=== PATIENT | female | born 1980 | race Caucasian/White ===

== ENCOUNTER 2024-03-23 16:39 | Inpatient (IN) ==
--- NOTE | 2024-03-23 16:45 | ED Triage Note ---
Date of Service March 23, 2024 Provider in Triage Author: Latia Foster History of Present Illness This patient was briefly evaluated while in triage. An abbreviated physical exam was performed. This patient is a 43-year-old Female who presents to the ED for evaluation of "my heart was pounding really fast" started acutely about 30 minutes ago pulse rate on smart watch was over 200 feeling near syncopal denies history of this Physical Exam GENERAL: ambulatory into triage in moderate distress. CARDIOVASCULAR: tachycardic, 200s. RESPIRATORY: CTA Initial orders for labs and / or imaging were placed and patient was placed in the waiting area until a bed is available. Please see further documentation for the full ED course.
[2024-03-23] MEDS: AMIODARONE 150MG / 100ML D5W IV ONE (16:56)
[2024-03-23] MEDS: METOPROLOL TARTRATE 1 MG/ML VIAL IV ONE ×2 (17:00→20:19)
[2024-03-23 17:14] LABS: iSTAT Creatinine 0.9 mg/dl (0.6-1.3); iSTAT Hemoglobin 16.7 g/dl (12.0-16.0); iSTAT Ionized Calcium 1.02 mmol/l (1.12-1.32); iSTAT Potassium 3.1 mmol/L (3.3-5.0)
[2024-03-23] MEDS: SODIUM CHLORIDE 0.9% 500 ML IV ONE (17:16)
[2024-03-23 17:20] LABS: Basophils % (auto) 0.6 %; Eosinophils # (auto) 0.16 K/uL (0.00-0.50); Eosinophils % (auto) 0.9 %; Hematocrit (blood only) 49.8 % (37.0-47.0); Hemoglobin 16.9 g/dl (12.0-16.0); Immature Granulocytes % (auto) 0.6 %; Lymphocytes # (auto) 3.48 K/uL (1.20-3.40); Mean Corpuscular Hemoglobin 32.3 pg (25.0-34.0); Mean Corpuscular Hgb Conc 33.9 g/dL (32.0-36.0); Mean Corpuscular Volume 95.2 fL (80.0-100.0); Mean Platelet Volume 10.2 fL (9.4-12.4); Monocytes # (auto) 1.19 K/uL (0.11-0.59); Monocytes % (auto) 6.8 %; Neutrophils # (auto) 12.38 K/uL (1.40-6.50); Neutrophils % (auto) 71.1 %; Platelet Count 330 K/uL (130-400); RDW Coefficient of Variation 12.1 % (11.5-14.5); RDW Standard Deviation 42.3 fL (36.4-46.3); Red Blood Count 5.23 M/uL (4.20-5.40); White Blood Count 17.41 K/ul (4.8-10.8)
[2024-03-23 17:23] LABS: Pregnancy Test, Serum Negative (Negative)
[2024-03-23 17:25] LABS: Albumin Globulin Ratio 1.5 (0.9-2); Albumin Level 4.9 gm/dl (3.4-5.0); BUN Creatinine Ratio 10.3 (10-20); Bilirubin,Total 0.6 mg/dl (0.2-1.0); Calcium 9.8 mg/dl (8.6-10.3); Creatinine Clr Calc Pharmacy 86.2 ml/min; Globulin 3.2 gm/dl (2.5-4.0); Magnesium 1.7 mg/dl (1.7-2.4); Potassium 3.2 mmol/L (3.5-5.1); Total Protein 8.1 gm/dl (6.0-8.3)
[2024-03-23 17:31] LABS: Troponin I High Sensitivity 5.7 pg/ml (0-14)
[2024-03-23 17:40] LABS: Partial Thromboplastin Time 27 Seconds (21-31); Prothrombin Time 10.6 Seconds (9.0-12.0); Thyroid Stimulating Hormone 3.716 uIu/ml (0.300-4.500)
[2024-03-23] MEDS: POTASSIUM CHLORIDE CRTAB 20 MEQ TABCR PO STA (17:45)
[2024-03-23] MEDS: POTASSIUM CHLORIDE / WTR 10 MEQ/100 ML PLCT IV ONE (17:45)
[2024-03-23] MEDS: AMIODARONE 360MG / 200ML D5W IV ONE (17:46)
--- NOTE | 2024-03-23 17:59 | XRay Report ---
EXAM: Radiograph of the Chest 1 View INDICATION: Palpitations. Tachycardia. TECHNIQUE: Frontal view of the chest. COMPARISON: No relevant prior studies available. FINDINGS: Lungs and pleural spaces: No consolidation or pulmonary edema. No pleural effusion or pneumothorax. Heart: Shape and configuration within normal limits allowing for technique. Mediastinum: Normal contour. Bones/joints: No fracture, erosion or dislocation. Soft tissues: No abnormality noted. No radiopaque foreign body noted. Upper abdomen: No abnormality noted. IMPRESSION: No abnormality noted. ACT 112: Negative or not required by law. Electronically signed by Samantha Sainz 03-23-2024 5:57 PM
--- NOTE | 2024-03-23 18:22 | Emergency Department Note ---
Impression & Plan Dysrhythmia, Wide-complex tachycardia, Leukocytosis, Hypokalemia ED Provider Note NAME: FELIX KOWALSKI AGE: 43 SEX: F : 1980 ARRIVES VIA: Walk-In INFORMANT: [Patient] ED PROVIDER(S): [Bryce Shah MD] CHIEF COMPLAINT: Tachycardia HISTORY OF PRESENT ILLNESS: The patient is a 43-year-old female who presents to the ER with 45 minutes of a pounding sensation in her heart and head. She has felt faint. No chest pain or dyspnea. She has no previous issues with the heart. No new medications. She has been in baseline health. The patient admits to some increased stress in her life, otherwise, things have been at baseline. PMHx/PSHx/Social Hx: See Below PHYSICAL EXAM: GENERAL: Patient is in mild distress. Anxious. HEENT: No acute trauma, normocephalic atraumatic, mucous membranes moist, no nasal congestion. NECK: No stridor, no adenopathy, no meningismus, trachea is midline. LUNGS: Clear to auscultation bilaterally, no wheeze, no rhonchi, breath sounds equal. HEART: Markedly tachycardic with what seems like a regular rhythm. No obvious murmur. ABDOMEN: Soft, nontender, no peritonitis. EXTREMITIES: No cyanosis, full range of motion of all the joints without pain or difficulty. Strong distal pulses in all 4 extremities. NEUROLOGIC: Oriented x 3, no acute motor or sensory deficits, no focal weakness. SKIN: No jaundice, no diaphoresis. DIFFERENTIAL DIAGNOSIS: V. tach, SVT, A-fib or a flutter, [place], among others. EMERGENCY DEPARTMENT PROCEDURES: MEDICAL DECISION MAKING: There is a moderate leukocytosis, this could be consistent with infection or just the stress of her presentation. There is no anemia. There was a normal platelet count. No coagulopathy. Potassium was somewhat low at 3.1. No renal failure. No concerning liver enzyme elevation. testing returned negative. The patient appeared to be in a euthyroid state. ECG showed a wide- complex tachycardia with a rate of around 200. Cardiac enzyme testing x 1 was not consistent with acute cardiac injury. Chest x-ray did not show CHF or significant cardiomegaly. On exam, the patient was quite tachycardic but not in distress. I was called to see the patient straightaway. Patient was aggressively managed here in the ED. The patient was given 150 mg of IV amiodarone over around 10 minutes. This seemed to improve the wide-complex tachycardia only slightly. She then received a total of 5 mg of IV Lopressor with resolution of the wide-complex tachycardia. She was seen to be in a normal sinus rhythm. Her symptoms resolved. The patient was given a liter of IV saline for hydration. She was given oral potassium and IV potassium. I did speak with cardiology. They recommended Lopressor twice a day and the amiodarone protocol. I discussed the case with the on-call hospitalist. Case management has been involved. The patient is aware of her findings, she is currently resting comfortably. She understands the reason for hospital admission. Prior/Outside records/notes reviewed: None ECG per my interpretation: Indication was tachycardia. The initial ECG shows a fast wide-complex rhythm with a rate of 203. There was a short run of narrow complex tachycardia. QTc was 474. There was diffuse nonspecific ST change. Repeat ECG per my interpretation: Indication was tachycardia. The ECG shows a normal sinus rhythm with a rate of 87. There is no acute ST elevation, no PVCs. The QTc was 438. Compared to the earlier ECG, sinus rhythm has been restored. Continuous Cardiac Monitoring per my interpretation: An order was placed for continuous cardiac monitoring. The monitor shows a rate of 78 with normal sinus rhythm. Imaging/x-ray results per my interpretation: Chest x-rays not show mediastinal widening, pneumonia or pneumothorax. Chronic Medical/Social conditions affecting care: None Care/Management discussed with: Case management, the on-call hospitalist. Cardiology-Dr. Morris. Level of care consideration(s): After review of the information above and other included data: --I believe the patient requires escalation of care to admission Critical Care Note: I have personally spent 56 minutes of critical care time in the direct management of this patient. This includes bedside care, interpretation of diagnostic studies, and testing, discussion with consultants, patient, and family members, and other required patient management activities. This 56 minutes is in excess of all separately billable procedures. DISPOSITION: Admission Past Med/Surg History Problem List (Updated 03/24/24 @ 13:49 by Bryce Shah MD) Hypokalemia (Acute) Leukocytosis (Acute) Wide-complex tachycardia (Acute) Dysrhythmia (Acute) Tachyarrhythmia SVT (supraventricular tachycardia) Medical History Heart palpitations Fibromyalgia Surgical History (Updated 03/23/24 @ 16:46 by Latia Foster) No history of previous surgery Social History Smoking Status: Current every day smoker Tobacco Type: Cigarettes Cigarettes Per Day: 30; Do You Dip or Chew Tobacco: No; Hx Alcohol Use: Yes Alcohol type: beer Hx Substance Use: No Preferred Language: Senegalese Communication Ability: Effective Beliefs That Will Affect Care: None Current Living Situation: Family Feels Safe at Home: Yes Safety Concerns: Feels Safe At This Time Assistive Devices: None Allergies Allergies Allergy/AdvReac Type Severity Reaction Status Date / Time No Known Allergies Allergy Verified 03/23/24 16:44 Home Meds Home Medications Medication Instructions Recorded Confirmed Vitamin C 03/24/24 ashwagandha extract 03/24/24 magnesium 03/24/24 Results & Data (ED) Vital Signs Vital Signs - 24 hr 03/23/24 16:43 03/23/24 16:53 03/23/24 17:00 Temperature 36.8 C Temperature Source Temporal Artery Scan Pulse Rate 209 H 205 H Pulse Rate [Right Finger] 198 H Respiratory Rate 18 19 Respiratory Effort / Characteristics Non-Labored Spontaneous Respiratory Depth Normal Respiratory Pattern Regular Blood Pressure 128/70 Blood Pressure [Right Arm] 134/95 Blood Pressure Mean 89 Blood Pressure Mean [Right Arm] 108 Pulse Oximetry 99 97 Oxygen Delivery Method Room Air Room Air Sepsis Recent Fever Within 48 Hours No Sepsis New/Unexplained Change in Mental Status N/A Sepsis Action Taken by Nursing No Action Required 03/23/24 17:00 03/23/24 17:10 03/23/24 17:15 Temperature Temperature Source Pulse Rate 200 H 84 Pulse Rate [Right Finger] 92 H Respiratory Rate 19 Respiratory Effort / Characteristics Respiratory Depth Respiratory Pattern Blood Pressure Blood Pressure [Right Arm] 115/78 Blood Pressure Mean Blood Pressure Mean [Right Arm] 90 Pulse Oximetry 99 Oxygen Delivery Method Room Air Sepsis Recent Fever Within 48 Hours Sepsis New/Unexplained Change in Mental Status Sepsis Action Taken by Nursing 03/23/24 17:15 03/23/24 17:30 03/23/24 17:59 Temperature Temperature Source Pulse Rate 89 Pulse Rate [Right Finger] 81 85 Respiratory Rate 18 16 Respiratory Effort / Characteristics Non-Labored Spontaneous Respiratory Depth Normal Respiratory Pattern Blood Pressure Blood Pressure [Right Arm] 110/79 113/75 Blood Pressure Mean Blood Pressure Mean [Right Arm] 89 87 Pulse Oximetry 99 98 Oxygen Delivery Method Room Air Room Air Sepsis Recent Fever Within 48 Hours Sepsis New/Unexplained Change in Mental Status Sepsis Action Taken by Longterm Medications Current Medication List: was personally reviewed by me Laboratory Data Attestation: I reviewed the patient's lab results. 03/24/24 02:56 03/24/24 02:56 Lab Results 03/23/24 03/23/24 Range/Units 16:34 17:02 WBC 17.41 H (4.8-10.8) K/ul RBC 5.23 (4.20-5.40) M/uL Hgb 16.9 H (12.0-16.0) g/dl POC Hgb 16.7 H (12.0-16.0) g/dl Hct 49.8 H (37.0-47.0) % POC Hct 49 H (37-47) % MCV 95.2 (80.0-100.0) fL MCH 32.3 (25.0-34.0) pg MCHC 33.9 (32.0-36.0) g/dL RDW Std Deviation 42.3 (36.4-46.3) fL RDW Coeff of Magno 12.1 (11.5-14.5) % Plt Count 330 (130-400) K/uL MPV 10.2 (9.4-12.4) fL Immature Gran % (Auto) 0.6 % Neut % (Auto) 71.1 % Lymph % (Auto) 20.0 % [place] % (Auto) 6.8 % Eos % (Auto) 0.9 % Baso % (Auto) 0.6 % Neut # (Auto) 12.38 H (1.40-6.50) K/uL Lymph # (Auto) 3.48 H (1.20-3.40) K/uL [place] # (Auto) 1.19 H (0.11-0.59) K/uL Eos # (Auto) 0.16 (0.00-0.50) K/uL Baso # (Auto) 0.10 (0.00-0.20) K/uL Immature Gran # (Auto) 0.10 (0.01-0.20) K/uL PT 10.6 (9.0-12.0) Seconds INR 1.0 (0.9-1.1) APTT 27 (21-31) Seconds PTT Ratio 1.0 POC Sodium 140 (135-144) mmol/L Sodium 140 (136-145) mmol/L POC Potassium 3.1 L (3.3-5.0) mmol/L Potassium 3.2 L (3.5-5.1) mmol/L POC Chloride 104 (101-112) mmol/L Chloride 104 (98-107) mmol/L Carbon Dioxide 25 (21-32) mmol/L POC Total CO2 23 L (24-31) mmol/L Anion Gap 11 (3-11) POC Anion Gap 17.0 (16-25) mmol/L POC BUN 8 (7-18) mg/dl BUN 8 (6-23) mg/dl Creatinine 0.78 (0.6-1.2) mg/dl POC Creatinine 0.9 (0.6-1.3) mg/dl Est Cr Clr Drug Dosing 86.2 ml/min eGFR 95.99 BUN/Creatinine Ratio 10.3 (10-20) Glucose 116 H (70-99(Fasting)) mg/dl POC Glucose (other) 116 H (70-99) mg/dl Calcium 9.8 (8.6-10.3) mg/dl POC Ioniz Calcium Carol 1.02 L (1.12-1.32) mmol/l Magnesium 1.7 (1.7-2.4) mg/dl Total Bilirubin 0.6 (0.2-1.0) mg/dl AST 19 (13-39) U/L ALT 14 (7-52) U/L Alkaline Phosphatase 46 (34-104) U/L Troponin I High Sens 5.7 (0-14) pg/ml Total Protein 8.1 (6.0-8.3) gm/dl Albumin 4.9 (3.4-5.0) gm/dl Globulin 3.2 (2.5-4.0) gm/dl Albumin/Globulin Ratio 1.5 (0.9-2) TSH 3.716 (0.300-4.500) uIu/ml HCG, Qual Negative (Negative) Administered Medications Heparin Sodium (Porcine) (Heparin Sod 5,000 Unit/0.5 Ml Vial) 5,000 units SQ Q8 LEYDA Stop: 04/22/24 21:59 Last Admin: 03/24/24 13:03 Dose: Not Given Documented By: Admin: 03/24/24 05:50 Dose: 5,000 units Documented By: Admin: 03/23/24 22:23 Dose: 5,000 units Documented By: BARRIE Potassium Chloride/Sodium Chloride (Normal Saline W/20 Meq Kcl) 20 meq in 1,000 mls @ 100 mls/hr IV .Q10H [facility] Stop: 03/24/24 16:29 Last Admin: 03/24/24 08:45 Dose: 100 mls/hr Documented By: Infusion: 03/24/24 08:45 Dose: Infused Documented By: Infusion: 03/23/24 23:20 Dose: 100 mls/hr Documented By: Infusion: 03/23/24 22:30 Dose: 0 mls/hr Documented By: Admin: 03/23/24 22:14 Dose: 100 mls/hr Documented By: BARRIE Magnesium Sulfate/Dextrose (Magnesium Sulfate / D5w) 1 gm in 100 mls @ 50 mls/hr IV Q2H [facility] Stop: 03/24/24 13:59 Last Admin: 03/24/24 12:43 Dose: 50 mls/hr Documented By: Infusion: 03/24/24 12:43 Dose: Infused Documented By: Admin: 03/24/24 11:04 Dose: 50 mls/hr Documented By: VERONIQUE Metoprolol Tartrate (Metoprolol Tartrate 25 Mg Tab) 25 mg PO BID LEYDA Stop: 04/22/24 20:59 Last Admin: 03/24/24 07:49 Dose: Not Given Documented By: Admin: 03/23/24 22:22 Dose: Not Given Documented By: BARRIE Discontinued Medications Amiodarone HCl/Dextrose (Amiodarone 150mg / 100ml D5w) Confirm Administered Dose 150 mg IV .STK-MED ONE Stop: 03/23/24 16:54 Last Admin: 03/23/24 16:56 Dose: 150 mg Documented By: ASW Co-signed By: JAE Amiodarone HCl/Dextrose (Amiodarone 360mg / 200ml D5w) Confirm Administered Dose 360 mg IV .STK-MED ONE Stop: 03/23/24 16:54 Last Admin: 03/23/24 17:46 Dose: Not Given Documented By: ELVIA Sodium Chloride (Nss) 500 mls @ 999 mls/hr IV .Q31M ONE Stop: 03/23/24 17:42 Last Infusion: 03/23/24 18:00 Dose: Infused Documented By: Admin: 03/23/24 17:16 Dose: 999 mls/hr Documented By: ELVIA Potassium Chloride (K Yovanny / Wtr) 10 meq in 100 mls @ 100 mls/hr IV ONE ONE Stop: 03/23/24 18:36 Last Infusion: 03/23/24 18:59 Dose: Infused Documented By: Admin: 03/23/24 17:45 Dose: 100 mls/hr Documented By: ELVIA Magnesium Sulfate/Dextrose (Magnesium Sulfate / D5w) 1 gm in 100 mls @ 50 mls/hr IV ONE ONE Stop: 03/23/24 20:44 Last Infusion: 03/23/24 20:58 Dose: Infused Documented By: JO ANN Admin: 03/23/24 18:58 Dose: 50 mls/hr Documented By: ELVIA Potassium Chloride (K Yovanny / Wtr) 10 meq in 100 mls @ 100 mls/hr IV Q1H [facility] Stop: 03/23/24 20:29 Last Infusion: 03/23/24 23:18 Dose: Infused Documented By: [facility] Admin: 03/23/24 22:18 Dose: 100 mls/hr Documented By: C Infusion: 03/23/24 20:29 Dose: Infused Documented By: Admin: 03/23/24 18:58 Dose: 100 mls/hr Documented By: ELVIA Sodium Chloride (Nss) 500 mls @ 80 mls/hr IV .Q6H15M [facility] Stop: 03/24/24 00:59 Last Infusion: 03/24/24 07:49 Dose: Infused Documented By: Admin: 03/23/24 18:50 Dose: 80 mls/hr Documented By: ELVIA Amiodarone HCl/Dextrose (Nexterone / D5w) 360 mg in 200 mls @ 16.667 mls/hr IV .Q12H [facility] Stop: 04/23/24 02:14 Last Infusion: 03/24/24 12:14 Dose: Infused Documented By: VERONIQUE Co-signed By: ROSA ELENA Infusion: 03/24/24 07:04 Dose: 0.5 mg/min, 16.7 mls/hr Documented By: VERONIQUE Co-signed By: BARRIE Admin: 03/24/24 02:17 Dose: 0.5 mg/min, 16.7 mls/hr Documented By: BARRIE Co-signed By: DOROTHY Amiodarone HCl/Dextrose (Nexterone / D5w) 360 mg in 200 mls @ 33.333 mls/hr IV .Q6H [facility] Stop: 03/24/24 02:14 Last Infusion: 03/24/24 07:04 Dose: Infused Documented By: VERONIQUE Co-signed By: BARRIE Admin: 03/23/24 20:44 Dose: 1 mg/min, 33.3 mls/hr Documented By: BARRIE Co-signed By: DOROTHY Metoprolol Tartrate (Metoprolol Tartrate 1 Mg/Ml Vial) Confirm Administered Dose 5 mg IV .STK-MED ONE Stop: 03/23/24 16:57 Last Admin: 03/23/24 17:00 Dose: 5 mg Documented By: ELVIA Metoprolol Tartrate (Metoprolol Tartrate 1 Mg/Ml Vial) Confirm Administered Dose 5 mg IV .STK-MED ONE Stop: 03/23/24 17:11 Last Admin: 03/23/24 20:19 Dose: Not Given Documented By: ELVIA Potassium Chloride (Potassium Chloride Crtab 20 Meq Tabcr) 40 meq PO NOW STA Stop: 03/23/24 17:38 Last Admin: 03/23/24 17:45 Dose: 40 meq Documented By: ELVIA Imaging Data Radiologist's Impression: Chest X-Ray 03/23/24 16:49 EXAM: Radiograph of the Chest 1 View INDICATION: Palpitations. Tachycardia. TECHNIQUE: Frontal view of the chest. COMPARISON: No relevant prior studies available. FINDINGS: Lungs and pleural spaces: No consolidation or pulmonary edema. No pleural effusion or pneumothorax. Heart: Shape and configuration within normal limits allowing for technique. Mediastinum: Normal contour. Bones/joints: No fracture, erosion or dislocation. Soft tissues: No abnormality noted. No radiopaque foreign body noted. Upper abdomen: No abnormality noted. IMPRESSION: No abnormality noted. ACT 112: Negative or not required by law. Electronically signed by Samantha Sainz 03-23-2024 5:57 PM Discharge Plan Visit Data Chief Complaint: Tachycardia Stated Complaint: TACHCARDYIA, WEAKNESS, SNYCOPE ED Provider: Bryce Shah Discharge Problem: Dysrhythmia, Wide-complex tachycardia, Leukocytosis, Hypokalemia Patient Disposition: Admitted As Inpatient Condition: Fair Discharge Instructions Interventions: ED Discharge Assessment Last Done: 03/23/24 20:27 Discharge Problem: Dysrhythmia Qualifiers: Arrhythmia type: unspecified cardiac arrhythmia Qualified Code(s): I49.9 - Cardiac arrhythmia, unspecified Leukocytosis Qualifiers: Leukocytosis type: unspecified Qualified Code(s): D72.829 - Elevated white blood cell count, unspecified
[2024-03-23] MEDS: SODIUM CHLORIDE 0.9% 500 ML IV SCH (18:50)
[2024-03-23] MEDS: POTASSIUM CHLORIDE / WTR 10 MEQ/100 ML PLCT IV SCH (18:58)
[2024-03-23] MEDS: MAGNESIUM SULFATE / D5W 1 GM/100 ML BAG IV ONE (18:58)
--- NOTE | 2024-03-23 19:06 | History & Physical Report ---
Date of Service March 23, 2024 Assessment & Plan (1) Heart palpitations: (2) SVT (supraventricular tachycardia): Plan Assessment and plan: Tachycardia Suspected SVT versus V. tach Reported in the ER with heart rate in the 200s, given 150 mg amio with no improvement Converted to sinus rhythm after IV Lopressor 5 mg x 1 Telemetry monitoring, check echo, consult cardiology After discussion with cardiology, recommended 25 mg metoprolol twice a day, maintenance Amio drip Unclear etiology, no clear cardiac history A total of 45 minutes was spent on reviewing diagnostic data/chart review/facilitating plan of care/discussion with consultants Full code DVT prophylaxis: SCDs, heparin subcu History of Present Illness Chief Complaint: palpitations - HR in 200s Primary Care Provider: Henrique Smith The patient is a 43-year-old female with no past medical history. She does not take any medications at home except for vitamins. She reports to the ED today on 03/23/2024 with complaints of feeling her heart was racing since 4 PM. She came straight to the ER which took about 45 minutes. She denies any chest pain with this episode or shortness of breath. Does report some nausea but no vomiting. She reports that this happened on Friday, 4 days ago, right before bed and lasted about 2 hours. She reports going to sleep and waking up okay the next morning. She reports that the heart palpitations came on suddenly. Denies any recent changes in her medications or eating or drinking habits. She denies frequent alcohol use and reports her last drink was about 4 days ago. She denies any fever/chills. She reports that her grandfather at 41 from an [place] but otherwise denies any family history of heart disease. She does report some dizziness and lightheadedness with each episode. On arrival to the ED, labs are unremarkable aside from potassium 3.1. And WBC count 17likely reactive, TSH within normal limits Chest x-ray negative The patient was given an amnio load with no response, then given 5 mg of IV Lopressor which converted the patient into normal sinus rhythm which she remains in. She will be admitted for further monitoring Allergies Allergy/AdvReac Type Severity Reaction Status Date / Time No Known Allergies Allergy Verified 03/23/24 16:44 Past Med/Surg History Problem List (Updated 03/23/24 @ 20:10 by ELIZABETH Garcia) SVT (supraventricular tachycardia) Heart palpitations Medical History (Updated 03/23/24 @ 20:10 by ELIZABETH Garcia) No significant past medical history Surgical History (Updated 03/23/24 @ 16:46 by Latia Foster) No history of previous surgery Social History Smoking Status: Never smoker Preferred Language: [place] Feels Safe at Home: Yes Review of Systems Review of Systems: All systems reviewed & are unremarkable except as noted in HPI & below Physical Exam Constitutional: WD/WN, vitals as above Eyes: PERRL, conjunctivae normal, anicteric sclerae ENMT: external ear and nose normal, oropharynx normal Neck: trachea midline, no thyromegaly Respiratory: normal respiratory effort, lungs clear to auscultation Cardiovascular: RRR, no murmur, no edema Gastrointestinal (Abdomen): normal bowel sounds, soft, nontender, no hepatosplenomegaly Musculoskeletal: no cyanosis or clubbing, extremities motor strength 5/5 Skin: no rashes, warm and dry Neurologic: PERRL, EOMI, accommodation nl, no face palsy, no dysarthria Psychiatric: A+Ox3, euthymic affect Lymphatic: no cervical or axillary lymphadenopathy Results & Data Results & Data Vital Signs (Past 12 Hours) Vital Signs Temp Pulse Pulse Resp BP BP Pulse Ox 03/23/24 18:30 74 20 117/80 100 03/23/24 17:59 85 16 113/75 98 03/23/24 17:30 81 18 110/79 99 03/23/24 17:15 89 03/23/24 17:15 84 03/23/24 17:10 92 H 19 115/78 99 03/23/24 17:00 200 H 03/23/24 17:00 198 H 19 134/95 97 03/23/24 16:53 205 H 03/23/24 16:43 36.8 C 209 H 18 128/70 99 O2 Del Method 03/23/24 18:30 Room Air 03/23/24 17:59 Room Air 03/23/24 17:30 Room Air 03/23/24 17:15 03/23/24 17:15 03/23/24 17:10 Room Air 03/23/24 17:00 03/23/24 17:00 Room Air 03/23/24 16:53 03/23/24 16:43 Room Air Diagnostic Findings Laboratory Results WBC 17.41 K/ul (4.8-10.8) H 03/23/24 16:34 RBC 5.23 M/uL (4.20-5.40) 03/23/24 16:34 Hgb 16.9 g/dl (12.0-16.0) H 03/23/24 16:34 POC Hgb 16.7 g/dl (12.0-16.0) H 03/23/24 17:02 Hct 49.8 % (37.0-47.0) H 03/23/24 16:34 POC Hct 49 % (37-47) H 03/23/24 17:02 MCV 95.2 fL (80.0-100.0) 03/23/24 16:34 MCH 32.3 pg (25.0-34.0) 03/23/24 16:34 MCHC 33.9 g/dL (32.0-36.0) 03/23/24 16:34 RDW Std Deviation 42.3 fL (36.4-46.3) 03/23/24 16:34 RDW Coeff of Magno 12.1 % (11.5-14.5) 03/23/24 16:34 Plt Count 330 K/uL (130-400) 03/23/24 16:34 MPV 10.2 fL (9.4-12.4) 03/23/24 16:34 Immature Gran % (Auto) 0.6 % 03/23/24 16:34 Neut % (Auto) 71.1 % 03/23/24 16:34 Lymph % (Auto) 20.0 % 03/23/24 16:34 [place] % (Auto) 6.8 % 03/23/24 16:34 Eos % (Auto) 0.9 % 03/23/24 16:34 Baso % (Auto) 0.6 % 03/23/24 16:34 Neut # (Auto) 12.38 K/uL (1.40-6.50) H 03/23/24 16:34 Lymph # (Auto) 3.48 K/uL (1.20-3.40) H 03/23/24 16:34 [place] # (Auto) 1.19 K/uL (0.11-0.59) H 03/23/24 16:34 Eos # (Auto) 0.16 K/uL (0.00-0.50) 03/23/24 16:34 Baso # (Auto) 0.10 K/uL (0.00-0.20) 03/23/24 16:34 Immature Gran # (Auto) 0.10 K/uL (0.01-0.20) 03/23/24 16:34 PT 10.6 Seconds (9.0-12.0) 03/23/24 16:34 INR 1.0 (0.9-1.1) 03/23/24 16:34 APTT 27 Seconds (21-31) 03/23/24 16:34 PTT Ratio 1.0 03/23/24 16:34 POC Sodium 140 mmol/L (135-144) 03/23/24 17:02 Sodium 140 mmol/L (136-145) 03/23/24 16:34 POC Potassium 3.1 mmol/L (3.3-5.0) L 03/23/24 17:02 Potassium 3.2 mmol/L (3.5-5.1) L 03/23/24 16:34 POC Chloride 104 mmol/L (101-112) 03/23/24 17:02 Chloride 104 mmol/L (98-107) 03/23/24 16:34 Carbon Dioxide 25 mmol/L (21-32) 03/23/24 16:34 POC Total CO2 23 mmol/L (24-31) L 03/23/24 17:02 Anion Gap 11 (3-11) 03/23/24 16:34 POC Anion Gap 17.0 mmol/L (16-25) 03/23/24 17:02 POC BUN 8 mg/dl (7-18) 03/23/24 17:02 BUN 8 mg/dl (6-23) 03/23/24 16:34 Creatinine 0.78 mg/dl (0.6-1.2) 03/23/24 16:34 POC Creatinine 0.9 mg/dl (0.6-1.3) 03/23/24 17:02 Est Cr Clr Drug Dosing 86.2 ml/min 03/23/24 16:34 eGFR 95.99 03/23/24 16:34 BUN/Creatinine Ratio 10.3 (10-20) 03/23/24 16:34 Glucose 116 mg/dl (70-99(Fasting)) H 03/23/24 16:34 POC Glucose (other) 116 mg/dl (70-99) H 03/23/24 17:02 Calcium 9.8 mg/dl (8.6-10.3) 03/23/24 16:34 POC Ioniz Calcium Carol 1.02 mmol/l (1.12-1.32) L 03/23/24 17:02 Magnesium 1.7 mg/dl (1.7-2.4) 03/23/24 16:34 Total Bilirubin 0.6 mg/dl (0.2-1.0) 03/23/24 16:34 AST 19 U/L (13-39) 03/23/24 16:34 ALT 14 U/L (7-52) 03/23/24 16:34 Alkaline Phosphatase 46 U/L (34-104) 03/23/24 16:34 Troponin I High Sens 5.7 pg/ml (0-14) 03/23/24 16:34 Total Protein 8.1 gm/dl (6.0-8.3) 03/23/24 16:34 Albumin 4.9 gm/dl (3.4-5.0) 03/23/24 16:34 Globulin 3.2 gm/dl (2.5-4.0) 03/23/24 16:34 Albumin/Globulin Ratio 1.5 (0.9-2) 03/23/24 16:34 TSH 3.716 uIu/ml (0.300-4.500) 03/23/24 16:34 HCG, Qual Negative (Negative) 03/23/24 16:34 Impressions Chest X-Ray 03/23/24 16:49 EXAM: Radiograph of the Chest 1 View INDICATION: Palpitations. Tachycardia. TECHNIQUE: Frontal view of the chest. COMPARISON: No relevant prior studies available. FINDINGS: Lungs and pleural spaces: No consolidation or pulmonary edema. No pleural effusion or pneumothorax. Heart: Shape and configuration within normal limits allowing for technique. Mediastinum: Normal contour. Bones/joints: No fracture, erosion or dislocation. Soft tissues: No abnormality noted. No radiopaque foreign body noted. Upper abdomen: No abnormality noted. IMPRESSION: No abnormality noted. ACT 112: Negative or not required by law. Electronically signed by AlistairSamantha 03-23-2024 5:57 PM Supervising Physician Co-Signing Physician Notes Patient is a 43-year-old female with no significant past medical history presents with history of palpitations associated with dizziness. Patient states having an episode on Friday which lasted for about 2 hours and resolved spont aneously. She had recurrence of palpitations today associated with dizziness and pulsations in her head. Her electronic watch showed heart rate of 200s and so she came to ED for further evaluation. She denies any chest pain, shortness of breath, fever, chills, vomiting, diarrhea, syncopal episode. She drinks 2 cups of coffee per day. In ED patient was found to have a tachyarrhythmia and received IV amiodarone and metoprolol which converted her back to sinus rhythm. Currently she is asymptomatic. Please review HPI for complete details of presentation. I personally reviewed blood work and imaging studies. White blood cell count elevated 17.4 1K, potassium 3.2, magnesium 1.7, hemoglobin 16.9, normal TSH. Chest x-ray within normal limits. Initial troponin normal Physical Exam: Vitals signs as noted above General Appearance:Moderately built and nourished, no apparent distress Head: normocephalic, Atraumatic Eyes: normal inspection, EOMI Neck: supple, Trachea midline Respiratory/Chest: Normal breath sounds, CTA, No accessory muscle use Cardiovascular: S1, S2, No murmur Abdomen/GI:Soft, Non tender, Bowel sounds present Extremities/Musculoskeletal:normal inspection, no edema Neurologic/Psych:AAOX3, grossly no focal neurological deficits Skin: normal color, warm Symptomatic tachyarrhythmia DD: VT/SVT Hypokalemia Leukocytosis likely reactive Currently in sinus Appreciate cardiology input Started on amiodarone drip, metoprolol 25 mg twice a day as recommended by cardiology Check resting echo Trend troponins, repeat EKG in the morning Cardiology consulted Monitor on telemetry Replete potassium, magnesium to keep potassium> 4, magnesium> 2 I personally interviewed and examined at bedside. Patient's care is coordinated with Eusebio JOHNSON.. I have reviewed the advanced practitioner's documentation, and I agree with plan of care. Please refer to the documentation above for details of patient's presentation and for discussion of other issues. I spent a total of33 minutes coordinating, documenting, and providing care for this patient excluding time spent in the performance of separately billed services.
[2024-03-23] MEDS ORDERED: AMIODARONE IV BOLUS & DRIP IV STA (19:56)
[2024-03-23] MEDS ORDERED: 0.2 MICRON FILTER SET 1 EACH IV ONE (20:15)
[2024-03-23] MEDS ORDERED: ACETAMINOPHEN 325 MG TAB PO PRN (20:40)
[2024-03-23] MEDS: AMIODARONE / D5W 360 MG/200 ML BAG IV SCH (20:44)
[2024-03-23 21:22] LABS: Troponin I High Sensitivity 11.3 pg/ml (0-14)
[2024-03-23] MEDS: NSS + 20MEQ KCL 20 MEQ/1,000 ML BAG IV SCH (22:14)
[2024-03-23] MEDS: METOPROLOL TARTRATE 25 MG TAB PO SCH (22:22)
[2024-03-23] MEDS: HEPARIN SOD 5,000 UNIT/0.5 ML VIAL SQ SCH (22:23)
[2024-03-24 00:04] LABS: BUN Creatinine Ratio 12.3 (10-20); Creatinine Clr Calc Pharmacy 103.4 ml/min; Potassium 4.2 mmol/L (3.5-5.1)
[2024-03-24] MEDS: AMIODARONE / D5W 360 MG/200 ML BAG IV SCH (02:17)
[2024-03-24 03:25] LABS: Hematocrit (blood only) 39.4 % (37.0-47.0); Hemoglobin 13.2 g/dl (12.0-16.0); Mean Corpuscular Hemoglobin 32.1 pg (25.0-34.0); Mean Corpuscular Hgb Conc 33.5 g/dL (32.0-36.0); Mean Corpuscular Volume 95.9 fL (80.0-100.0); Mean Platelet Volume 10.2 fL (9.4-12.4); Platelet Count 232 K/uL (130-400); RDW Standard Deviation 42.6 fL (36.4-46.3); Red Blood Count 4.11 M/uL (4.20-5.40); White Blood Count 11.63 K/ul (4.8-10.8)
[2024-03-24 03:35] LABS: Albumin Globulin Ratio 1.6 (0.9-2); Albumin Level 3.5 gm/dl (3.4-5.0); BUN Creatinine Ratio 15.5 (10-20); Bilirubin,Total 0.2 mg/dl (0.2-1.0); Creatinine Clr Calc Pharmacy 115.9 ml/min; Globulin 2.2 gm/dl (2.5-4.0); Magnesium 1.8 mg/dl (1.7-2.4); Potassium 4.1 mmol/L (3.5-5.1); Total Protein 5.7 gm/dl (6.0-8.3)
--- NOTE | 2024-03-24 08:15 | Cardiology Consultation ---
Date of Consultation March 24, 2024 Assessment & Plan (1) Tachyarrhythmia: (2) Heart palpitations: Plan 43-year-old female with no significant past cardiac history who presented to [facility] ED on 03/23/24 for evaluation of heart palpitations. She noticed heart racing with pounding in chest and head yesterday. [place] faint with associated lightheadedness and dizziness. Heart rates were in 200s on Apple Watch. Episode lasted for 45 minutes and decided to come into ER for further evaluation. Had a prior episode of heart palpitations on Friday evening while laying in bed. Heart rates were in 200s. She went to bed and symptoms improved by the morning. Last episode of heart racing and palpitations occurred a couple years ago but she never had a work-up. Current smoker with 22 pack-year history. Denies medications, but takes vitamin supplements with Ashwagandha, vitamin C, and magnesium supplements. EKG upon admission showed fast wide-complex rhythm with rates in 200s. ED work- up remarkable for potassium 3.1, elevated WBC 17.4, magnesium 1.7, hemoglobin 16.9, and normal TSH. Troponins flat. CXR was negative. Received amiodarone bolus in ER with no improvement. Converted back to normal sinus rhythm after receiving 5 mg IV Lopressor. Started amiodarone drip and metoprolol 25 mg twice daily. -Overall doing well with no recurrent palpitations -Sinus rhythm with rates in 60 to 80s and no tachyarrhythmias noted upon telemetry review -ECHO today showed LVEF 60-65% and no significant valvular disease -Magnesium 1.8 on AM labs and repleted -Continue to monitor and replace electrolytes as needed (goal K > 4.0; Magnesium > 2.0) -Discontinued amiodarone gtt -Continue metoprolol tartrate 25 mg twice daily -Continue to monitor on telemetry during hospitalization -Avoid stimulants and OTC decongestants -Stop taking OTC magnesium and Ashwagandha vitamin supplements -Etiology unclear for symptomatic tachyarrhythmia given no significant cardiac history. Recommend EP consult for further evaluation of possible ventricular tachycardia. Supervising Physician Co-Signing Physician Notes I have personally performed a history and physical examination on the patient.I have reviewed the advance practitioner's documentation, and I agree with, and take responsibility for the plan of care. 43-year-old female present to the emergency department secondary to palpitations and lightheadedness. ECG demonstrating ventricular tachycardia heart rate approximately 200 bpm. Patient returned to sinus rhythm after treatment with IV Lopressor and amiodarone. She has remained in sinus rhythm overnight. Reports a prior episode of palpitations nearly 1 year ago which were self-limited. Currently asymptomatic and requesting discharge if possible. Preliminary review of bedside 2D transthoracic echocardiogram demonstrates normal biventricular size and function. No significant valvular pathology.Patient denies any anginal symptoms. 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 No orthopnea, PND, or lower extremity edema. Denies personal history of coronary disease, congestive heart failure, or rheumatic fever as a child. Impression: 1. Ventricular tachycardia -Possibly right ventricular outflow track VT -Normal LV/RV size and systolic function per echo without anginal symptoms 2. Mild hypokalemia Plan/ Recommendations: Discontinue IV amiodarone. Discontinue metoprolol to tartrate in favor of metoprolol succinate 25 mg twice daily. Supplement to maintain serum potassium greater than 4.0, and magnesium greater than 2.0. Outpatient cardiac MRI and CT. Electrophysiology consultation. Stepan Morris DO, [facility] History of Present Illness Reason for Consultation: Tachyarrhythmia Requesting Physician: Amilcar Mackenzie MD Attending Physician: Mariam Yañez MD History of Present Illness 43-year-old female with PMHx of fibromyalgia otherwise no significant medical problems who presented to [facility] ED on 03/23/24 for evaluation of heart racing and pounding. She noticed heart racing yesterday with pounding in her chest and head. [place] like she was going to faint with associated lightheadedness and dizzi ness. Episode lasted for 45 minutes. Heart rates were in 200s on Apple Watch and decided to come into the hospital. She had a brief episode of heart racing and pounding while laying in bed on Friday evening. Her heart rates were in 200s at that time as well. She went to sleep and heart rates were back to normal when woke up in the morning. Her first episode of palpitations and heart racing was a couple of years ago, but she never had a work-up for palpitations. Per chart review, EKG upon admission showed fast wide-complex rhythm with rates in 200s. ED work-up remarkable for potassium 3.1, elevated WBC 17.4, magnesium 1.7, hemoglobin 16.9, and normal TSH. Troponins flat. CXR was negative. Given amiodarone load and 5 mg of IV Lopressor. Converted back to normal sinus rhythm. Started on amiodarone gtt and metoprolol 25 mg twice daily. Seen today and resting comfortably in bed. Remains on amiodarone drip. She is overall feeling better. Denies recurrent palpitations since she was admitted to the floor. Denies history of syncope with palpitations. Denies chest discomfort, shortness of breath, dyspnea on exertion, orthopnea, PND, recent weight change, abdominal bloating, nausea, vomiting, or visual changes. Denies recent illness or infections. Chart, medications, and telemetry over the past 24 hours reviewed. Medications: She does not take any medications except for vitamins. She reports taking Ashwaganda and Vitamin C. She also takes a magnesium supplement as needed for muscle stiffness with fibromyalgia, but did not take last week. Does not remember dosage. Social History: Lives with her . Has been smoking 1/2-1 ppd since she was 15-16 years old. Social drinker with 1 alcoholic drink last Friday. Denies history of illicit drug use. Drinks 2-3 cups of coffee daily. Denies energy drinks. Drinks 64 ounces of water daily. Family History: Grandfather - [place] ( age 41) Allergies Allergy/AdvReac Type Severity Reaction Status Date / Time No Known Allergies Allergy Verified 03/23/24 16:44 Home Medications Medication Instructions Recorded Confirmed Type Vitamin C 03/24/24 History ashwagandha extract 03/24/24 History magnesium 03/24/24 History Patient History Medical History Heart palpitations Fibromyalgia Surgical History (Updated 03/23/24 @ 16:46 by Latia Foster) No history of previous surgery Social History Smoking Status: Current every day smoker Tobacco Type: Cigarettes Cigarettes Per Day: 30; Do You Dip or Chew Tobacco: No; Hx Alcohol Use: Yes Alcohol type: beer Hx Substance Use: No Preferred Language: Portuguese Communication Ability: Effective Beliefs That Will Affect Care: None Current Living Situation: Family Feels Safe at Home: Yes Safety Concerns: Feels Safe At This Time Assistive Devices: None Medical History Heart palpitations Fibromyalgia Surgical History (Updated 03/23/24 @ 16:46 by Latia Foster) No history of previous surgery Social History Smoking Status: Current every day smoker Tobacco Type: Cigarettes Cigarettes Per Day: 30; Do You Dip or Chew Tobacco: No; Hx Alcohol Use: Yes Alcohol type: beer Hx Substance Use: No Preferred Language: Portuguese Communication Ability: Effective Beliefs That Will Affect Care: None Current Living Situation: Family Feels Safe at Home: Yes Safety Concerns: Feels Safe At This Time Assistive Devices: None Review of Systems Review of Systems: See HPI for pertinent positives. All others negative other than those noted in the HPI. CONSTITUTIONAL: No change in weight, No weakness, No fatigue, No fevers, No sweats or chills. HEENT: No visual changes, No epistaxis, No bleeding gums, No dysphagia, PULMONARY: No cough, sputum, or hemoptysis, No wheezing, No shortness of breath, and No recent change in breathing. CARDIOVASCULAR: +palpitations. No chest pain, No dyspnea on exertion, No edema, No syncope, No claudication, No calf pain. GASTROINTESTINAL: No change in appetite, No abdominal pain, No change in bowel habits, No significant heartburn, No nausea, No vomiting, No diarrhea, No constipation, No blood in stools or black tarry stools, No dysphagia. HEMATOLOGIC: No abnormal bleeding and No bruising. NEUROLOGICAL: +dizziness, lightheadedness. No falls, Normal balance, No headaches, and No weakness. PSYCH: No sleep disturbances, No mood changes. Physical Exam Physical Exam: Vital signs within normal limits as above. General: Well developed and nourished. No acute distress. A+Ox3. HEENT: Normocephalic. Atraumatic. EOMI. Conjunctiva and sclera clear. NECK: Trachea midline. No thyromegaly. No carotid bruits. No JVD. Carotid upstrokes are brisk. Heart: RRR. S1 and S2 noted. No murmur. No rubs or gallops. PMI non displaced. Lungs: No acute respiratory distress. Clear to auscultation. No wheezes.No rhonchi. No rales. Abdomen: Normal bowel sounds. Soft. Nontender. No abdominal bruits. Extremities: Normal capillary refill. No edema. No clubbing or cyanosis. Pulses: radial=2/4, dorsal pedis=2/4. Skin: Warm and dry. NEURO: No focal deficits. PSYCH: Appropriate affect and insight. Results & Data Vital Signs (Past 12 Hours) Vital Signs Temp Pulse Pulse Resp BP BP Pulse Ox 03/24/24 07:51 65 03/24/24 07:00 36.4 C L 60 18 92/86 L 97 03/24/24 02:32 36.4 C L 64 18 89/55 L 97 03/23/24 22:15 36.7 C 65 16 98/62 L 97 03/23/24 22:09 64 03/23/24 21:30 36.6 C 65 18 119/76 99 03/23/24 20:10 71 20 116/72 100 O2 Del Method 03/24/24 07:51 03/24/24 07:00 Room Air 03/24/24 02:32 Room Air 03/23/24 22:15 Room Air 03/23/24 22:09 03/23/24 21:30 Room Air 03/23/24 20:10 Room Air Laboratory Results Cardiac Enzymes 03/23/24 03/23/24 03/24/24 Range/Units 16:34 20:14 02:56 AST 19 13 (13-39) U/L Troponin I High Sens 5.7 11.3 D 6.6 D (0-14) pg/ml Coagulation 03/23/24 Range/Units 16:34 PT 10.6 (9.0-12.0) Seconds APTT 27 (21-31) Seconds CBC 03/23/24 03/24/24 Range/Units 16:34 02:56 WBC 17.41 H 11.63 H (4.8-10.8) K/ul RBC 5.23 4.11 L (4.20-5.40) M/uL Hgb 16.9 H 13.2 D (12.0-16.0) g/dl Hct 49.8 H 39.4 (37.0-47.0) % Plt Count 330 232 (130-400) K/uL Neut # (Auto) 12.38 H (1.40-6.50) K/uL Lymph # (Auto) 3.48 H (1.20-3.40) K/uL [place] # (Auto) 1.19 H (0.11-0.59) K/uL Eos # (Auto) 0.16 (0.00-0.50) K/uL Baso # (Auto) 0.10 (0.00-0.20) K/uL Comprehensive Metabolic Panel 03/23/24 03/23/24 03/24/24 Range/Units 16:34 23:32 02:56 Sodium 140 138 139 (136-145) mmol/L Potassium 3.2 L 4.2 D 4.1 (3.5-5.1) mmol/L Chloride 104 109 H 111 H (98-107) mmol/L Carbon Dioxide 25 25 23 (21-32) mmol/L BUN 8 8 9 (6-23) mg/dl Creatinine 0.78 0.65 0.58 L (0.6-1.2) mg/dl Glucose 116 H 213 H 100 H (70-99(Fasting)) mg/dl Calcium 9.8 8.0 L 8.0 L (8.6-10.3) mg/dl AST 19 13 (13-39) U/L ALT 14 10 (7-52) U/L Alkaline Phosphatase 46 33 L (34-104) U/L Total Protein 8.1 5.7 L D (6.0-8.3) gm/dl Albumin 4.9 3.5 (3.4-5.0) gm/dl Intake and Output 03/23/24 03/24/24 03/24/24 22:59 06:59 14:59 Intake Total 1376.667 / 2026.667 650 / 2026.667 779.882 / 779.882 Balance 1376.667 / 2026.667 650 / 2026.667 779.882 / 779.882 Intake: IV 826.667 / 926.667 100 / 926.667 779.882 / 779.882 Amiodarone / D5w 360 mg In 200 279.882 / 279.882 ml @ 1 MG/MIN 33.333 mls/hr IV .Q6H [facility] Rx#:[id number] Magnesium Sulfate / D5w 1 gm In 100 / 100 100 ml @ 50 mls/hr IV ONE ONE Rx#:[id number] Nss + 20Meq KCl 20 meq In 1,000 26.667 / 26.667 0 / 26.667 ml @ 100 mls/hr IV .Q10H [facility] Rx#:[id number] Potassium Chloride / Wtr 10 meq 200 / 300 100 / 300 In 100 ml @ 100 mls/hr IV Q1H [facility] Rx#:[id number] Sodium Chloride 0.9% 500 ml @ 500 / 500 999 mls/hr IV .Q31M [facility] Rx#: [id number] Sodium Chloride 0.9% 500 ml @ 500 / 500 80 mls/hr IV .Q6H15M [facility] Rx#: [id number] Oral 550 / 1100 550 / 1100 Other: # Unmeasured Voids 1 Weight 62.6 kg 62.6 kg Weight Measurement Method Built in [facility] Built in [facility] Diagnostic Findings EKG 03/24/24 NSR with sinus arrhythmia 68 bpm QTc 446 EKG 03/23/24 NSR with frequent PVCs 95 bpm QTc 434 EKG 03/23/24 Wide-complex tachycardia Diffuse non-specific ST abnormalities 203 bpm QTc 474 Chest X-Ray 03/23/24 16:49 EXAM: Radiograph of the Chest 1 View INDICATION: Palpitations. Tachycardia. TECHNIQUE: Frontal view of the chest. COMPARISON: No relevant prior studies available. FINDINGS: Lungs and pleural spaces: No consolidation or pulmonary edema. No pleural effusion or pneumothorax. Heart: Shape and configuration within normal limits allowing for technique. Mediastinum: Normal contour. Bones/joints: No fracture, erosion or dislocation. Soft tissues: No abnormality noted. No radiopaque foreign body noted. Upper abdomen: No abnormality noted. IMPRESSION: No abnormality noted. ACT 112: Negative or not required by law. Electronically signed by Samantha Sainz 03-23-2024 5:57 PM
--- NOTE | 2024-03-24 08:57 | Post Anesthesia Assessment ---
Date of Service March 24, 2024 Post Sedation Assessment Vital Signs Temp Pulse Pulse Resp BP BP BP 03/24/24 07:51 65 03/24/24 07:00 36.4 C L 60 18 92/86 L 03/24/24 02:32 36.4 C L 64 18 89/55 L 03/23/24 22:15 36.7 C 65 16 98/62 L 03/23/24 22:09 64 03/23/24 21:30 36.6 C 65 18 119/76 03/23/24 20:10 71 20 116/72 03/23/24 19:26 72 18 125/83 03/23/24 18:30 74 20 117/80 03/23/24 17:59 85 16 113/75 03/23/24 17:30 81 18 110/79 03/23/24 17:15 89 03/23/24 17:15 84 03/23/24 17:10 92 H 19 115/78 03/23/24 17:00 200 H 03/23/24 17:00 198 H 19 134/95 03/23/24 16:53 205 H 03/23/24 16:43 36.8 C 209 H 18 128/70 Pulse Ox O2 Del Method 03/24/24 07:51 03/24/24 07:00 97 Room Air 03/24/24 02:32 97 Room Air 03/23/24 22:15 97 Room Air 03/23/24 22:09 03/23/24 21:30 99 Room Air 03/23/24 20:10 100 Room Air 03/23/24 19:26 100 Room Air 03/23/24 18:30 100 Room Air 03/23/24 17:59 98 Room Air 03/23/24 17:30 99 Room Air 03/23/24 17:15 03/23/24 17:15 03/23/24 17:10 99 Room Air 03/23/24 17:00 03/23/24 17:00 97 Room Air 03/23/24 16:53 03/23/24 16:43 99 Room Air Recovery Score Respiration: Deep Breath/Cough Circulation: +/-20% PreAnes Value Consciousness: Arouseable (by name) Oxygen Saturation: > 92% On Room Air Post Sedation Plan On clinical assessment, the patient appears to have tolerated the sedation without complications. Patient is recovering as anticipated. Patient will continue to be monitored by nursing and may be discharged when sedation discharge criteria are met per below protocol. Upon Completions of procedure up to 15 minutes continue every 5 minute vital signs and the P.A.R. score; then discharge to a Phase I or Fast Track to Phase II per the following guidelines: * Discharge Patient to appropriate Phase II area if PAR is 8 or greater or return to pre- procedure baseline. The post - procedure orders will be as directed. * If PAR score is less than 8 or not return to pre-procedure baseline then patient will follow Phase I monitoring till PAR is reached for Phase II. The Phase I may be done in procedure room or may call to secure a Phase I area. * If naloxone or flumazenil are used for reversal, hold in Phase I for continued monitoring from when last reversal dose was given for a minimum of 60 minutes or longer pending the nurse and/or physician discretion of patient condition before discharge to Phase II. Please call the Sedation Physician to re-evaluate and complete post-note for discharge to Phase II area. Do NOT discharge from procedure sedation or Phase 1 until post- sedation evaluation note is complete by procedure /sedation MD Sedation Discharge Instructions to be given to the patient at discharge to home.
[2024-03-24] MEDS: MAGNESIUM SULFATE / D5W 1 GM/100 ML BAG IV SCH (11:04)
--- NOTE | 2024-03-24 14:36 | Hospitalist Progress Note ---
Date of Service March 24, 2024 Assessment & Plan (1) Tachyarrhythmia: Plan: Suspected SVT versus V. tach Reported in the ER with heart rate in the 200s, given 150 mg amio with no improvement Converted to sinus rhythm after IV Lopressor 5 mg x 1 After discussion with cardiology, recommended 25 mg metoprolol twice a day, maintenance Amio drip Unclear etiology, no clear cardiac history Has been on intravenous amiodarone and also intravenous/oral metoprolol Reverted to sinus rhythm with a controlled rate and without any symptoms Echo of the heart showed EF of 60 to 65% and no significant valvular heart disease Appreciate cardiology input and recommendation Amiodarone has been discontinued by the youtuber and will continue metoprolol tartrate 25 mg twice daily Recommended EP consult for further evaluation of possible ventricular tachyc ardia by the youtuber (2) Heart palpitations: (3) SVT (supraventricular tachycardia): (4) Wide-complex tachycardia: (5) Hypokalemia: Plan: Will monitor electrolytes and supplement as needed (6) Leukocytosis: Plan: Likely secondary to her stress and doubt any infection Plan Full code DVT prophylaxis: SCDs, heparin subcu Admission and Anticipated Discharge Date Admission Date: March 23, 2024 Subjective 03/24/2024 The patient was seen and examined in telemetry unit She was admitted yesterday with palpitation and occasional dizziness and noted to have tachyarrhythmias Has been feeling much better since admission and reversion to sinus rhythm Denies any symptoms during examination today Review of Systems Review of Systems: All systems reviewed and are unremarkable except as noted below Physical Exam Physical Exam: Lying in bed, anxious but no other distress Constitutional: average body habitus; not ill appearing ENMT: external ear and nose normal, oropharynx normal Neck: trachea midline, no thyromegaly Respiratory: no respiratory distress Auscultation: + lungs not clear to auscultation Cardiovascular: Rate/Rhythm: regular rate and regular rhythm; not tachycardic Heart Sounds: normal S1 and normal S2; no murmur Extremities: no edema Gastrointestinal (Abdomen): Inspection/Auscultation: normal bowel sounds; abdomen not distended Percussion/Palpation: abdomen soft; abdomen nontender Musculoskeletal: No acute arthritis involving any of the joint Neurologic: moves all extremities; + abnormal touch/pain/proprioception and no focal motor deficits Psychiatric: A+Ox3, euthymic affect Lymphatic: no cervical or axillary lymphadenopathy Results & Data Results & Data Vital Signs (Past 12 Hours) Vital Signs Temp Pulse Pulse Resp BP Pulse Ox O2 Del Method 03/24/24 11:52 36.7 C 56 L 18 96/62 L 98 Room Air 03/24/24 07:51 65 03/24/24 07:00 36.4 C L 60 18 92/86 L 97 Room Air 03/24/24 02:32 36.4 C L 64 18 89/55 L 97 Room Air Laboratory Results Short CBC 03/23/24 03/24/24 Range/Units 16:34 02:56 WBC 17.41 H 11.63 H (4.8-10.8) K/ul Hgb 16.9 H 13.2 D (12.0-16.0) g/dl Hct 49.8 H 39.4 (37.0-47.0) % Plt Count 330 232 (130-400) K/uL BMP 03/23/24 03/23/24 03/24/24 16:34 23:32 02:56 Sodium 140 138 139 Potassium 3.2 L 4.2 D 4.1 Chloride 104 109 H 111 H Carbon Dioxide 25 25 23 BUN 8 8 9 Creatinine 0.78 0.65 0.58 L Glucose 116 H 213 H 100 H Calcium 9.8 8.0 L 8.0 L Liver Function 03/23/24 03/24/24 Range/Units 16:34 02:56 Total Bilirubin 0.6 0.2 (0.2-1.0) mg/dl AST 19 13 (13-39) U/L ALT 14 10 (7-52) U/L Alkaline Phosphatase 46 33 L (34-104) U/L Albumin 4.9 3.5 (3.4-5.0) gm/dl Medications Administered Current Inpatient Medications Acetaminophen (Acetaminophen 325 Mg Tab) 650 mg PO Q4H PRN PRN Reason: Pain or Fever Stop: 04/22/24 20:39 Heparin Sodium (Porcine) (Heparin Sod 5,000 Unit/0.5 Ml Vial) 5,000 units SQ Q8 [facility] Stop: 04/22/24 21:59 Last Admin: 03/24/24 13:03 Dose: Not Given Potassium Chloride/Sodium Chloride (Normal Saline W/20 Meq Kcl) 20 meq in 1,000 mls @ 100 mls/hr IV .Q10H [facility] Stop: 03/24/24 16:29 Last Admin: 03/24/24 08:45 Dose: 100 mls/hr Metoprolol Tartrate (Metoprolol Tartrate 25 Mg Tab) 25 mg PO BID [facility] Stop: 04/22/24 20:59 Last Admin: 03/24/24 07:49 Dose: Not Given (6) Leukocytosis Leukocytosis type: unspecified Qualified Code(s): D72.829 - Elevated white blood cell count, unspecified
[2024-03-24] MEDS: METOPROLOL SUCC 25MG EXT REL TAB PO SCH (21:31)
--- NOTE | 2024-03-25 06:04 | Electrocardiogram Report ---
Test Reason : Blood Pressure : */* mmHG Vent. Rate : 95 BPM Atrial Rate : 95 BPM P-R Int : 162 ms QRS Dur : 82 ms QT Int : 346 ms P-R-T Axes : 83 92 70 degrees QTcB Int : 434 ms Sinus rhythm with frequent Premature ventricular complexes Biatrial enlargement Rightward axis Abnormal ECG When compared with ECG of 23-Mar-2024 16:50, Sinus rhythm has replaced Ventricular tachycardia Confirmed by Tanmay Noble ([id number]) on 03/25/2024 6:04:46 AM Referred By: REFERRED SELF Confirmed By: Tanmay Noble
--- NOTE | 2024-03-25 06:04 | Electrocardiogram Report ---
Test Reason : Blood Pressure : */* mmHG Vent. Rate : 203 BPM Atrial Rate : 161 BPM P-R Int : * ms QRS Dur : 68 ms QT Int : 258 ms P-R-T Axes : * 86 -53 degrees QTcB Int : 474 ms Ventricular tachycardia Abnormal ECG No previous ECGs available Confirmed by Tanmay Noble ([id number]) on 03/25/2024 6:03:50 AM Referred By: Confirmed By: Tanmay Noble
--- NOTE | 2024-03-25 06:05 | Electrocardiogram Report ---
Test Reason : Blood Pressure : */* mmHG Vent. Rate : 68 BPM Atrial Rate : 68 BPM P-R Int : 168 ms QRS Dur : 86 ms QT Int : 420 ms P-R-T Axes : 79 88 71 degrees QTcB Int : 446 ms Normal sinus rhythm with sinus arrhythmia Normal ECG When compared with ECG of 23-Mar-2024 17:09, Premature ventricular complexes are no longer Present ST elevation now present in Inferior leads Confirmed by Tanmay Noble ([id number]) on 03/25/2024 6:05:22 AM Referred By: REFERRED SELF Confirmed By: Tanmay Noble
[2024-03-25 07:43] LABS: Basophils # (auto) 0.05 K/uL (0.00-0.20); Basophils % (auto) 0.7 %; Eosinophils # (auto) 0.16 K/uL (0.00-0.50); Eosinophils % (auto) 2.1 %; Hematocrit (blood only) 39.3 % (37.0-47.0); Hemoglobin 12.9 g/dl (12.0-16.0); Immature Granulocytes # (auto) 0.02 K/uL (0.01-0.20); Immature Granulocytes % (auto) 0.3 %; Lymphocytes # (auto) 2.96 K/uL (1.20-3.40); Lymphocytes % (auto) 38.9 %; Mean Corpuscular Hemoglobin 31.8 pg (25.0-34.0); Mean Corpuscular Hgb Conc 32.8 g/dL (32.0-36.0); Mean Corpuscular Volume 96.8 fL (80.0-100.0); Mean Platelet Volume 10.6 fL (9.4-12.4); Monocytes # (auto) 0.65 K/uL (0.11-0.59); Monocytes % (auto) 8.5 %; Neutrophils # (auto) 3.77 K/uL (1.40-6.50); Neutrophils % (auto) 49.5 %; Platelet Count 203 K/uL (130-400); RDW Coefficient of Variation 12.3 % (11.5-14.5); Red Blood Count 4.06 M/uL (4.20-5.40); White Blood Count 7.61 K/ul (4.8-10.8)
[2024-03-25 08:03] LABS: BUN Creatinine Ratio 16.4 (10-20); Calcium 8.3 mg/dl (8.6-10.3); Creatinine Clr Calc Pharmacy 110.2 ml/min; Magnesium 1.9 mg/dl (1.7-2.4); Phosphorus 2.8 mg/dl (2.5-4.9); Potassium 4.1 mmol/L (3.5-5.1)
--- NOTE | 2024-03-25 08:17 | Cardiology Progress Note ---
Date of Service March 25, 2024 Assessment & Plan (1) Tachyarrhythmia: (2) Heart palpitations: Plan 43-year-old female with no significant past cardiac history who presented to [facility] ED on 03/23/24 for evaluation of heart palpitations. She noticed heart racing with pounding in chest and head yesterday. [place] faint with associated lightheadedness and dizziness. Heart rates were in 200s on Apple Watch. Episode lasted for 45 minutes and decided to come into ER for further evaluation. Had a prior episode of heart palpitations on Friday evening while laying in bed. Heart rates were in 200s. She went to bed and symptoms improved by the morning. Last episode of heart racing and palpitations occurred a couple years ago but she never had a work-up. Current smoker with 22 pack-year history. Denies medications, but takes vitamin supplements with Ashwagandha, vitamin C, and mag nesium supplements. EKG upon admission showed fast wide-complex rhythm with rates in 200s. ED work- up remarkable for potassium 3.1, elevated WBC 17.4, magnesium 1.7, hemoglobin 16.9, and normal TSH. Troponins flat. CXR was negative. Received amiodarone bolus in ER with no improvement. Converted back to normal sinus rhythm after receiving 5 mg IV Lopressor. Started amiodarone drip and metoprolol 25 mg twice daily. Amiodarone drip discontinued yesterday (03/24). -Overall feeling well with no recurrent palpitations -Etiology unclear for fast wide-complex tachyarrhythmia, but possible right ventricular outflow tract tachycardia -Recent ECHO showed LVEF 60-65% and no significant valvular disease -Sinus rhythm with rates in 50s to 60s and no tachyarrhythmias noted upon telemetry review -Continue metoprolol tartrate 25 mg twice daily upon discharge home -Avoid stimulants and OTC decongestants -Recommend stopping OTC Ashwagandha and magnesium supplements at this time -Recommend outpatient cardiology follow-up with cardiac MRI and CT Admission and Anticipated Discharge Date Admission Date: March 23, 2024 Supervising Physician Co-Signing Physician Notes I have personally performed a history and physical examination on the patient.I have reviewed the advance practitioner's documentation, and I agree with, and take responsibility for the plan of care. Feeling well overnight. No recurrent dysrhythmia. Anxious for discharge. Impression: 1. Ventricular tachycardia -Possibly RVOT VT -Normal LV/RV size and systolic function per echo without anginal symptoms 2. Mild hypokalemia - supplemented Plan/ Recommendations: Continue metoprolol succinate 25 mg twice daily. Supplement to maintain serum potassium greater than 4.0, and magnesium greater than 2.0. Outpatient cardiac MRI and CT. Electrophysiology consultation. Stepan Morris DO, [facility] Subjective 43-year-old female with PMHx of fibromyalgia otherwise no significant medical problems who presented to [facility] ED on 03/23/24 for evaluation of heart racing and pounding. She noticed heart racing yesterday with pounding in her chest and head. [place] like she was going to faint with associated lightheadedness and dizziness. Episode lasted for 45 minutes. Heart rates were in 200s on Apple Watch and decided to come into the hospital. She had a brief episode of heart racing and pounding while laying in bed on Friday evening. Her heart rates were in 200s at that time as well. She went to sleep and heart rates were back to normal when woke up in the morning. Her first episode of palpitations and heart racing was a couple of years ago, but she never had a work-up for palpitations. Per chart review, EKG upon admission showed fast wide-complex rhythm with rates in 200s. ED work-up remarkable for potassium 3.1, elevated WBC 17.4, magnesium 1.7, hemoglobin 16.9, and normal TSH. Troponins flat. CXR was negative. Given amiodarone load and 5 mg of IV Lopressor. Converted back to normal sinus rhythm. Started on amiodarone gtt and metoprolol 25 mg twice daily. Amiodarone drip discontinued yesterday. Seen today and resting comfortably in bed. She is overall feeling better with no acute concerns. Denies recurrent palpitations, lightheadedness, or dizziness. Denies chest discomfort, shortness of breath, dyspnea on exertion or worsening edema. Chart, medications, and telemetry over the past 24 hours reviewed. Review of Systems Review of Systems: See HPI for pertinent positives. All others negative other than those noted in the HPI. CONSTITUTIONAL: No change in weight, No weakness, No fatigue, No fevers, No sweats or chills. HEENT: No visual changes, No epistaxis, No bleeding gums, No dysphagia, PULMONARY: No cough, sputum, or hemoptysis, No wheezing, No shortness of breath, and No recent change in breathing. CARDIOVASCULAR: No chest pain, No palpitations, No dyspnea on exertion, No edema, No syncope, No claudication, No calf pain. GASTROINTESTINAL: No change in appetite, No abdominal pain, No change in bowel habits, No significant heartburn, No nausea, No vomiting, No diarrhea, No constipation, No blood in stools or black tarry stools, No dysphagia. HEMATOLOGIC: No abnormal bleeding and No bruising. NEUROLOGICAL: No dizziness. No lightheadedness. No falls, Normal balance, No headaches, and No weakness. PSYCH: No sleep disturbances, No mood changes. Physical Exam Physical Exam: Vital signs within normal limits as above. General: Well developed and nourished. No acute distress. A+Ox3. HEENT: Normocephalic. Atraumatic. EOMI. Conjunctiva and sclera clear. NECK: Trachea midline. No thyromegaly. No carotid bruits. No JVD. Carotid upstrokes are brisk. Heart: RRR. S1 and S2 noted. No murmur. No rubs or gallops. PMI non displaced. Lungs: No acute respiratory distress. Clear to auscultation. No wheezes.No rhonchi. No rales. Abdomen: Normal bowel sounds. Soft. Nontender. No abdominal bruits. Extremities: Normal capillary refill. No edema. No clubbing or cyanosis. Pulses: radial=2/4, dorsal pedis=2/4. Skin: Warm and dry. NEURO: No focal deficits. PSYCH: Appropriate affect and insight. Results & Data Vital Signs (Past 12 Hours) Vital Signs Temp Pulse Pulse Resp BP Pulse Ox O2 Del Method 03/25/24 07:21 36.3 C L 46 L 16 104/61 99 Room Air 03/25/24 02:54 36.3 C L 63 18 94/59 L 98 Room Air 03/24/24 23:52 53 L 03/24/24 22:35 36.7 C 71 18 97/62 L 98 Room Air Laboratory Results CBC 03/25/24 Range/Units 06:56 WBC 7.61 (4.8-10.8) K/ul RBC 4.06 L (4.20-5.40) M/uL Hgb 12.9 (12.0-16.0) g/dl Hct 39.3 (37.0-47.0) % Plt Count 203 (130-400) K/uL Neut # (Auto) 3.77 (1.40-6.50) K/uL Lymph # (Auto) 2.96 (1.20-3.40) K/uL [place] # (Auto) 0.65 H (0.11-0.59) K/uL Eos # (Auto) 0.16 (0.00-0.50) K/uL Baso # (Auto) 0.05 (0.00-0.20) K/uL Comprehensive Metabolic Panel 03/25/24 Range/Units 06:56 Sodium 139 (136-145) mmol/L Potassium 4.1 (3.5-5.1) mmol/L Chloride 111 H (98-107) mmol/L Carbon Dioxide 23 (21-32) mmol/L BUN 10 (6-23) mg/dl Creatinine 0.61 (0.6-1.2) mg/dl Glucose 91 (70-99(Fasting)) mg/dl Calcium 8.3 L (8.6-10.3) mg/dl Intake and Output 03/24/24 03/25/24 03/25/24 22:59 06:59 14:59 Intake Total 1240 / 4330.332 550 / 4330.332 Balance 1240 / 4330.332 550 / 4330.332 Intake: IV 1000 / 2990.332 Nss + 20Meq KCl 20 meq In 1,000 1000 / 1941.667 ml @ 100 mls/hr IV .Q10H [facility] Rx#:[id number] Oral 240 / 1340 550 / 1340 Other: # Unmeasured Voids 2 1 Weight 66 kg Weight Measurement Method Built in [facility]
[2024-03-25 10:48] VITALS: PULSE 60; RESP 18; TEMP 97.9; O2SAT 98
--- NOTE | 2024-03-25 11:55 | Hospitalist Progress Note ---
Date of Service March 25, 2024 Assessment & Plan (1) Tachyarrhythmia: Plan: Suspected SVT versus V. tach Reported in the ER with heart rate in the 200s, given 150 mg amio with no improvement Converted to sinus rhythm after IV Lopressor 5 mg x 1 After discussion with cardiology, recommended 25 mg metoprolol twice a day, maintenance Amio drip Unclear etiology, no clear cardiac history Has been on intravenous amiodarone and also intravenous/oral metoprolol Reverted to sinus rhythm with a controlled rate and without any symptoms Echo of the heart showed EF of 60 to 65% and no significant valvular heart disease Appreciate cardiology input and recommendation Amiodarone has been discontinued by the senior receptionist and will continue metoprolol tartrate 25 mg twice daily Recommended EP consult for further evaluation of possible ventricular tachyc ardia by the senior receptionist Remains medically stable without any symptoms Heart rate is controlled and remains in sinus rhythm Will be discharged home this afternoon (2) Heart palpitations: (3) SVT (supraventricular tachycardia): (4) Wide-complex tachycardia: (5) Hypokalemia: Plan: Will monitor electrolytes and supplement as needed (6) Leukocytosis: Plan: Likely secondary to her stress and doubt any infection Plan Full code DVT prophylaxis: SCDs, heparin subcu Admission and Anticipated Discharge Date Admission Date: March 23, 2024 Subjective 03/24/2024 The patient was seen and examined in telemetry unit She was admitted yesterday with palpitation and occasional dizziness and noted to have tachyarrhythmias Has been feeling much better since admission and reversion to sinus rhythm Denies any symptoms during examination today 03/25/2024 The patient was seen and examined in telemetry unit in presence of the She has been feeling much better and denies any cardiac symptoms Blood pressure remains on the lower side but does not have any dizziness with activity She will be discharged home this afternoon Review of Systems Review of Systems: All systems reviewed and are unremarkable except as noted below Physical Exam Physical Exam: Lying in bed, anxious but no other distress Constitutional: average body habitus; not ill appearing ENMT: external ear and nose normal, oropharynx normal Neck: trachea midline, no thyromegaly Respiratory: no respiratory distress Auscultation: + lungs not clear to auscultation Cardiovascular: Rate/Rhythm: regular rate and regular rhythm; not tachycardic Heart Sounds: normal S1 and normal S2; no murmur Extremities: no edema Gastrointestinal (Abdomen): Inspection/Auscultation: normal bowel sounds; abdomen not distended Percussion/Palpation: abdomen soft; abdomen nontender Neurologic: moves all extremities; + abnormal touch/pain/proprioception and no focal motor deficits Psychiatric: A+Ox3, euthymic affect Lymphatic: no cervical or axillary lymphadenopathy Results & Data Results & Data Vital Signs (Past 12 Hours) Vital Signs Temp Pulse Pulse Resp BP Pulse Ox O2 Del Method 03/25/24 10:47 36.6 C 60 18 93/59 L 98 Room Air 03/25/24 08:19 49 L 03/25/24 07:21 36.3 C L 46 L 16 104/61 99 Room Air 03/25/24 02:54 36.3 C L 63 18 94/59 L 98 Room Air Laboratory Results Short CBC 03/25/24 Range/Units 06:56 WBC 7.61 (4.8-10.8) K/ul Hgb 12.9 (12.0-16.0) g/dl Hct 39.3 (37.0-47.0) % Plt Count 203 (130-400) K/uL [facility] 03/25/24 06:56 Sodium 139 Potassium 4.1 Chloride 111 H Carbon Dioxide 23 BUN 10 Creatinine 0.61 Glucose 91 Calcium 8.3 L Medications Administered Current Inpatient Medications Acetaminophen (Acetaminophen 325 Mg Tab) 650 mg PO Q4H PRN PRN Reason: Pain or Fever Stop: 04/22/24 20:39 Heparin Sodium (Porcine) (Heparin Sod 5,000 Unit/0.5 Ml Vial) 5,000 units SQ Q8 [facility] Stop: 04/22/24 21:59 Last Admin: 03/25/24 05:31 Dose: Not Given Metoprolol Succinate (Metoprolol Succ 25mg Ext Rel Tab) 25 mg PO BID [facility] Stop: 04/23/24 20:59 Last Admin: 03/25/24 10:24 Dose: Not Given (6) Leukocytosis Leukocytosis type: unspecified Qualified Code(s): D72.829 - Elevated white blood cell count, unspecified
[2024-03-25 13:12] VITALS: BP 119/76
--- NOTE | 2024-03-26 08:25 | Discharge Summary ---
Date of Service March 26, 2024 Admission HPI Per Admitting Provider The patient is a 43-year-old female with no past medical history. She does not take any medications at home except for vitamins. She reports to the ED today on 03/23/2024 with complaints of feeling her heart was racing since 4 PM. She came straight to the ER which took about 45 minutes. She denies any chest pain with this episode or shortness of breath. Does report some nausea but no vomiting. She reports that this happened on Friday, 4 days ago, right before bed and lasted about 2 hours. She reports going to sleep and waking up okay the next morning. She reports that the heart palpitations came on suddenly. Denies any recent changes in her medications or eating or drinking habits. She denies frequent alcohol use and reports her last drink was about 4 days ago. She denies any fever/chills. She reports that her grandfather at 41 from an PA but otherwise denies any family history of heart disease. She does report some dizziness and lightheadedness with each episode. On arrival to the ED, labs are unremarkable aside from potassium 3.1. And WBC count 17likely reactive, TSH within normal limits Chest x-ray negative The patient was given an amnio load with no response, then given 5 mg of IV Lopressor which converted the patient into normal sinus rhythm which she remains in. She will be admitted for further monitoring Admission Exam Per Admitting Provider Constitutional: WD/WN, vitals as above Eyes: PERRL, conjunctivae normal, anicteric sclerae ENMT: external ear and nose normal, oropharynx normal Neck: trachea midline, no thyromegaly Respiratory: normal respiratory effort, lungs clear to auscultation Cardiovascular: RRR, no murmur, no edema Gastrointestinal (Abdomen): normal bowel sounds, soft, nontender, no hepatosplenomegaly Musculoskeletal: no cyanosis or clubbing, extremities motor strength 5/5 Skin: no rashes, warm and dry Neurologic: PERRL, EOMI, accommodation nl, no face palsy, no dysarthria Psychiatric: A+Ox3, euthymic affect Lymphatic: no cervical or axillary lymphadenopathy Principal Diagnosis Tachyarrhythmias Discharge Exam Lying in bed, anxious but no other distress Constitutional average body habitus; not ill appearing ENMT external ear and nose normal, oropharynx normal Neck trachea midline, no thyromegaly Respiratory no respiratory distress Auscultation: + lungs not clear to auscultation Cardiovascular Rate/Rhythm: regular rate and regular rhythm; not tachycardic Heart Sounds: normal S1 and normal S2; no murmur Extremities: no edema Gastrointestinal (Abdomen) Inspection/Auscultation: normal bowel sounds; abdomen not distended Percussion/Palpation: abdomen soft; abdomen nontender Neurologic moves all extremities; + abnormal touch/pain/proprioception and no focal motor deficits Psychiatric A+Ox3, euthymic affect Lymphatic no cervical or axillary lymphadenopathy Discharge Data Allergies Allergy/AdvReac Type Severity Reaction Status Date / Time No Known Allergies Allergy Verified 03/23/24 16:44 Consultations 03/23/24 18:25 ED Decision to Admit Stat 03/23/24 18:26 Consult Cardiology Routine Hospital Course (1) Tachyarrhythmia: Suspected SVT versus V. tach Reported in the ER with heart rate in the 200s, given 150 mg amio with no improvement Converted to sinus rhythm after IV Lopressor 5 mg x 1 After discussion with cardiology, recommended 25 mg metoprolol twice a day, maintenance Amio drip Unclear etiology, no clear cardiac history Has been on intravenous amiodarone and also intravenous/oral metoprolol Reverted to sinus rhythm with a controlled rate and without any symptoms Echo of the heart showed EF of 60 to 65% and no significant valvular heart disease Appreciate cardiology input and recommendation Amiodarone has been discontinued by the heel gummer and will continue metoprolol tartrate 25 mg twice daily Recommended EP consult for further evaluation of possible ventricular tachycardia by the heel gummer Remains medically stable without any symptoms Heart rate is controlled and remains in sinus rhythm Will be discharged home this afternoon (2) Heart palpitations: (3) SVT (supraventricular tachycardia): (4) Wide-complex tachycardia: (5) Hypokalemia: Will monitor electrolytes and supplement as needed (6) Leukocytosis: Likely secondary to her stress and doubt any infection Plan Full code DVT prophylaxis: SCDs, heparin subcu Total Time Total Time Spent Total Time Spent (In Minutes): 35 minutes Discharge Plan Discharge Items Patient Disposition: Home - Self-Care Reason For Visit: TACHYCARDIA Discharge Diagnosis: Tachyarrhythmias Condition on Discharge: Good Activity: Resume your previous activity Non-emergency contact: Primary Care Provider Call non-emergency contact if: you have any medication questions and your symptoms worsen Follow-up/Referrals: Henrique Smith [Primary Care Provider] - ( Please make an appointment with your PCP within 7 days. [facility] cardiology will give you a call with an appointment with them) Diet: Heart Healthy Addtl Attending Provider Instructions: Please take precautions to avoid falls Take your medications as advised Please keep appointments with your healthcare providers Pending Studies at Discharge: No Stand-Alone Forms: My [facility], Smoking Cessation Medications and DC Order Prescriptions: New metoprolol succinate 25 mg Tablet Extended Release 24 Hr 25 mg PO BID Qty: 6 0RF Continued Vitamin C Discontinued ashwagandha extract magnesium Discharge Orders: Discharge Order (Routine); Ordered 03/25/24 Ordered By: Mariam Yañez Admission Data Admit Date/Time: 03/23/24 18:27 Attending Provider: Mariam Yañez Admit Provider: Amilcar Mackenzie Primary Care Provider: Henrique Smith Other Providers: Stepan Morris Other Interventions: Discharge Summary Assessment (RN) Last Done: 03/25/24 13:11
--- NOTE | 2024-03-26 21:30 | Electrocardiogram Report ---
Test Reason : Blood Pressure : */* mmHG Vent. Rate : 66 BPM Atrial Rate : 66 BPM P-R Int : 162 ms QRS Dur : 88 ms QT Int : 430 ms P-R-T Axes : 84 88 70 degrees QTcB Int : 450 ms Normal sinus rhythm with sinus arrhythmia Normal ECG When compared with ECG of 24-Mar-2024 05:43, No significant change was found Confirmed by Tanmay Noble ([id number]) on 03/26/2024 9:29:49 PM Referred By: REFERRED SELF Confirmed By: Tanmay Noble
== END 2024-03-25 13:42 | disposition home or self-care (01) | DRG 310 ==
LOC: ED 16:39 → EDINP 18:27 → SUATTDRO 18:27 → 4W 20:27
DX: R42 Dizziness and giddiness; I47.19 Other supraventricular tachycardia; E87.6 Hypokalemia; F17.210 Nicotine dependence, cigarettes, uncomplicated; M79.7 Fibromyalgia; D72.829 Elevated white blood cell count, unspecified